=== PATIENT | female | born 1955 | race African-American/Black ===

== ENCOUNTER → 2017-04-15 | Outpatient (CLI) | payer MEDICARE, MEDICAID ==
[2016-03-01 12:02] VITALS: BP 111/74
[~2017-04-15] MED LIST: CITA40TA5 PO; CYCL10TA2 PO; DOCU100C28 PO; ESOM20CA30 PO; FLUT16SP NS; GUAI-107 PO; LORA10TA3 PO; LOSA1TAB17 PO; METF500T9 PO; NIFE30TA7 PO; ONDA4TAB7 PO; VENTOLIN HFA18 GM IH; amlodipine; citalopram; flexeril; fluticasone nasal; loratadine; losartan/hctz; metformin; nexium; proair
--- NOTE | 2017-04-15 10:52 | RAD ---
Indication left shoulder pain for 3 months. No history of injury. Internally and externally rotated views of the left shoulder were obtained. There are minimal degenerative changes at the AC joint. No acute finding is seen. Significant degenerative change at the glenohumeral joint is not seen.
== END | disposition home or self-care (01) ==
LOC: RAD 10:16
PROVIDERS: ATTEND Family Medicine
DX: M25.512 Pain in left shoulder (principal)
CPT/HCPCS: 73030

== ENCOUNTER 2017-07-18 11:41 | Emergency (ER) | payer MEDICARE, MEDICAID ==
[~2017-07-18] VITALS: Ht 165.1 cm; Wt 88.5 kg
[~2017-07-18 11:41] MED LIST changes: -GUAI-107 PO; +GUAI-108 PO
[2017-07-18 12:41] LABS: BASO # 0.1 x10^3/uL (0.0-0.2); BASO % 1 % (0-3); EOS % 5 % (0-3); HEMOGLOBIN 11.3 g/dL (12.0-15.5); LYMPH # 2.8 x10^3/uL (1.0-4.8); LYMPH % 37 % (24-48); MEAN CORPUSCULAR HEMOGLOBIN 26 pg (25-35); MEAN CORPUSCULAR HGB CONC 32 g/dL (31-37); MEAN CORPUSCULAR VOLUME 79 fL (79-100); MONO % 6 % (0-9); NEUT % 51 % (31-73); PLATELET COUNT 348 x10^3/uL (140-400); RED BLOOD COUNT 4.44 x10^6/uL (3.50-5.40); RED CELL DISTRIBUTION WIDTH 14.3 % (11.5-14.5); WHITE BLOOD COUNT 7.5 x10^3/uL (4.0-11.0)
[2017-07-18 12:46] LABS: CALCIUM 9.5 mg/dL (8.5-10.1); GFR 67.5; POTASSIUM 3.5 mmol/L (3.5-5.1)
--- NOTE | 2017-07-18 12:47 | RAD ---
EXAM: CHEST 1 VIEW History: Nontraumatic mid sternal chest pain, cough for 2 weeks COMPARISON: 03/01/2016 TECHNIQUE: Single portable radiograph of the chest FINDINGS: The cardiac silhouette is unremarkable. The lungs are clear bilaterally. The costophrenic sulci are clear and well demarcated. IMPRESSION: No radiographic evidence of an acute cardiopulmonary process.
[2017-07-18 12:52] LABS: ALBUMIN 3.9 g/dL (3.4-5.0); ALBUMIN/GLOBULIN RATIO 0.9 (1.0-1.7); TOTAL BILIRUBIN 0.3 mg/dL (0.2-1.0); TOTAL PROTEIN 8.1 g/dL (6.4-8.2)
--- NOTE | 2017-07-18 12:59 | EKG ---
[facility] [address] [place] [address] Test Date: 2017-07-18 Test Time: 11:52:02 Pat Name: YESENIA LIMA Department: Room: Gender: F Records Management Director: : 1955 Requested By: WILEY DORADO Order Number: [id number] Reading MD: Measurements Intervals Eva Rate: 90 P: 52 TX: 146 QRS: -15 QRSD: 86 T: 14 QT: 372 QTc: 459 Interpretive Statements SINUS RHYTHM LEFTWARD AXIS R-S TRANSITION ZONE IN V LEADS DISPLACED TO THE LEFT QRS(T) CONTOUR ABNORMALITY CONSIDER ANTEROSEPTAL MYOCARDIAL DAMAGE CONSISTENT WITH INFERIOR INFARCT PROBABLY OLD RI6.01 Unconfirmed report No previous ECG available for comparison
[2017-07-18 14:00] VITALS: BP 147/87
--- NOTE | 2017-07-18 14:00 | PHYS DOC ---
Past Medical History Past Medical History: Depression, Diabetes-Type II, Hypertension Past Surgical History: Hysterectomy, Other Additional Past Surgical Histo: lumpectomy left breast, right knee surgery, right thumb, BREAST REDUCTION Alcohol Use: None Drug Use: None Adult General Chief Complaint Chief Complaint: CHEST WALL PAIN HPI HPI Patient is a 62 year old AA female presents with left-sided pleuritic chest wall pain, worse with deep breathing and cough. Patient has had cough with nasal congestion rhinorrhea and nocturnal cough keep her awake. Patient was evaluated by her primary care physician 4 days ago for the same condition. Patient states her symptoms improved. Patient denies fever, chills, nausea, vomiting and sweats. Denies shortness of breath or exertional chest pain. Denies increased leg pain or swelling. No history of CAD, congestive heart failure, DVT or PE. No other acute symptoms or complaints. Patient is a nonsmoker. Review of Systems Review of Systems ROS as per HPI. Allergies Allergies Allergies Coded Allergies Type Severity Reaction Last Updated Verified verapamil Allergy Intermediate itching 10/24/14 No Physical Exam Physical Exam Constitutional: Well developed, well nourished, no acute distress, non-toxic appearance. [] HENT: Normocephalic, atraumatic, bilateral external ears normal, oropharynx moist, no oral exudates, nose normal. [] Eyes: PERRLA, EOMI, conjunctiva normal, no discharge. [] Neck: Normal range of motion, no tenderness, supple, no stridor. [] Cardiovascular:Heart rate regular rhythm, no murmur, negative Homans signs. [] Lungs & Thorax: Bilateral breath sounds clear to auscultation S had a chest wall pain, tenderness. [] Abdomen: Bowel sounds normal, soft, no tenderness, gastric pain, tenderness.[] Skin: Warm, dry, no erythema, no rash. [] Back: No tenderness, no CVA tenderness. [] Extremities: No tenderness, no cyanosis, no clubbing, ROM intact, no edema. [] Neurologic: Alert and oriented X 3, normal motor function, normal sensory function, no focal deficits noted. [] Psychologic: Affect normal, judgement normal, mood normal. [] Current Patient Data Vital Signs Vital Signs Date Time Temp Pulse Resp B/P (MAP) Pulse Ox O2 Delivery O2 Flow Rate FiO2 07/18/17 11:56 98.1 86 18 118/76 (90) 96 Room Air 98.1 Lab Values Laboratory Tests Test 07/18/17 12:25 White Blood Count 7.5 x10^3/uL (4.0-11.0) Red Blood Count 4.44 x10^6/uL (3.50-5.40) Hemoglobin 11.3 g/dL (12.0-15.5) L Hematocrit 35.0 % (36.0-47.0) L Mean Corpuscular Volume 79 fL (79-100) Mean Corpuscular Hemoglobin 26 pg (25-35) Mean Corpuscular Hemoglobin Concent 32 g/dL (31-37) Red Cell Distribution Width 14.3 % (11.5-14.5) Platelet Count 348 x10^3/uL (140-400) Neutrophils (%) (Auto) 51 % (31-73) Lymphocytes (%) (Auto) 37 % (24-48) Monocytes (%) (Auto) 6 % (0-9) Eosinophils (%) (Auto) 5 % (0-3) H Basophils (%) (Auto) 1 % (0-3) Neutrophils # (Auto) 3.8 x10^3uL (1.8-7.7) Lymphocytes # (Auto) 2.8 x10^3/uL (1.0-4.8) Monocytes # (Auto) 0.5 x10^3/uL (0.0-1.1) Eosinophils # (Auto) 0.3 x10^3/uL (0.0-0.7) Basophils # (Auto) 0.1 x10^3/uL (0.0-0.2) Sodium Level 142 mmol/L (136-145) Potassium Level 3.5 mmol/L (3.5-5.1) Chloride Level 103 mmol/L (98-107) Carbon Dioxide Level 31 mmol/L (21-32) Anion Gap 8 (6-14) Blood Urea Nitrogen 14 mg/dL (7-20) Creatinine 1.0 mg/dL (0.6-1.0) Estimated GFR (Cockcroft-Gault) 67.5 BUN/Creatinine Ratio 14 (6-20) Glucose Level 85 mg/dL (70-99) Calcium Level 9.5 mg/dL (8.5-10.1) Total Bilirubin 0.3 mg/dL (0.2-1.0) Aspartate Amino Transferase (AST) 18 U/L (15-37) Alanine Aminotransferase (ALT) 20 U/L (14-59) Alkaline Phosphatase 89 U/L (46-116) Creatine Kinase 145 U/L (26-192) Troponin I Quantitative < 0.017 ng/mL (0.000-0.055) IX-Enj-T-Type Natriuretic Peptide 12 pg/mL (0-124) Total Protein 8.1 g/dL (6.4-8.2) Albumin 3.9 g/dL (3.4-5.0) Albumin/Globulin Ratio 0.9 (1.0-1.7) L Laboratory Tests 07/18/17 12:25 Laboratory Tests 07/18/17 12:25 EKG EKG [EKG: Normal sinus rhythm, rate 90, no acute ST-T wave changes, QTC 459. EKG interpreted by this physician.] Radiology/Procedures Radiology/Procedures [Chest x-ray: No acute cardiopulmonary disease per radiology report.] Course & Med Decision Making Course & Med Decision Making Pertinent Labs and Imaging studies reviewed. (See chart for details) [Patient with persistent cough and posttussive chest wall pain and occasional emesis. Cardiac related or overlap chest pain considered but felt unlikely. EKG troponin are negative. Patient's symptoms are nonexertional. Case reviewed in detail with patient's primary care physician who requests that the patient call their office this afternoon to further coordinate outpatient care. Return precautions reviewed. Patient verbalizes understanding agreement discharge instructions prior to departure.] Dragon Disclaimer Dragon Disclaimer This electronic medical record was generated, in whole or in part, using a voice recognition dictation system. Departure Departure Impression: Primary Impression: Chest wall pain Additional Impression: Pleurisy Disposition: 01 HOME, SELF-CARE Condition: GOOD Patient Instructions: Chest Wall Pain, [id number], Pleurisy, [id number] Additional Instructions: Please contact Dr. Mckeon's office this afternoon and provide update of condition. Problem Qualifiers AVEWILEY CARBAJAL Jul 18, 2017 14:00
== END 2017-07-18 14:10 | disposition home or self-care (01) ==
LOC: ER 11:41
DX: R09.1 Pleurisy (principal); R07.89 Other chest pain; R05 Cough; R07.81 Pleurodynia; R09.81 Nasal congestion; E11.9 Type 2 diabetes mellitus without complications; I10 Essential (primary) hypertension; F32.9 Major depressive disorder, single episode, unspecified; Z90.710 Acquired absence of both cervix and uterus; Z88.8 Allergy status to other drugs, medicaments and biological substances
CPT/HCPCS: 36415; 71010; 80053; 82550; 83880; 84484; 85025; 93005; 99285-25

== ENCOUNTER 2017-08-15 16:07 | Emergency (ER) | payer MEDICARE, MEDICAID ==
[~2017-08-15] VITALS: Ht 165.1 cm; Wt 86.2 kg
[~2017-08-15 16:07] MED LIST changes: -LOSA1TAB17 PO; +LOSA1TAB22 PO
--- NOTE | 2017-08-15 16:44 | PHYS DOC ---
Past Medical History Past Medical History: Depression, Diabetes-Type II, Hypertension Past Surgical History: Hysterectomy, Other Additional Past Surgical Histo: lumpectomy left breast, right knee surgery, right thumb, BREAST REDUCTION Alcohol Use: None Drug Use: None Adult General Chief Complaint Chief Complaint: FACE PAIN HPI HPI Patient is a 62 year old female with history of diabetes type 2, hypertension, who presents with left facial swelling that she noted this morning when she woke up. Patient denies any fever. Denies any cough and congestion. She states she's had similar swelling bilaterally before and believes it went away on its own. Review of Systems Review of Systems Constitutional: Denies fever or chills [] Eyes: Denies change in visual acuity, redness, or eye pain [] HENT: Left facial swelling. Denies nasal congestion or sore throat [] Respiratory: Denies cough or shortness of breath [] Cardiovascular: No additional information not addressed in HPI [] GI: Denies abdominal pain, nausea, vomiting, bloody stools or diarrhea [] : Denies dysuria or hematuria [] Musculoskeletal: Denies back pain or joint pain [] Integument: Denies rash or skin lesions [] Neurologic: Denies headache, focal weakness or sensory changes [] Current Medications Current Medications Current Medications Medications (Trade) Dose Ordered Sig/Nevaeh Start Time Stop Time Status Last Admin Dose Admin Clindamycin Phosphate 50 ml @ 100 mls/hr Q8HRS 08/15/17 17:00 08/15/17 17:42 100 MLS/HR Info (Do NOT chart on this entry -- for MONITORING) 1 each PRN DAILY PRN 08/15/17 17:00 08/17/17 16:59 Iohexol (Omnipaque 300 Mg/ml) 75 ml 1X ONCE 08/15/17 17:00 08/15/17 17:01 DC 08/15/17 18:13 75 ML Sodium Chloride 1,000 ml @ 1,000 mls/hr 1X ONCE 08/15/17 17:00 08/15/17 17:59 DC 08/15/17 17:40 1,000 MLS/HR Allergies Allergies Allergies Coded Allergies Type Severity Reaction Last Updated Verified verapamil Allergy Intermediate itching 10/24/14 No Physical Exam Physical Exam Constitutional: Well developed, well nourished, no acute distress, non-toxic appearance. [] HENT: Normocephalic, atraumatic, bilateral external ears normal, oropharynx moist, no oral exudates, nose normal. [] Left jaw with mild swelling. No redness to the area but the area is tender. No fluctuance. Patient is missing molars, and premolars on the left upper and lower gums Eyes: PERRLA, EOMI, conjunctiva normal, no discharge. [] Neck: Normal range of motion, no tenderness, supple, no stridor. [] Cardiovascular:Heart rate regular rhythm, no murmur [] Lungs & Thorax: Bilateral breath sounds clear to auscultation [] Abdomen: Bowel sounds normal, soft, no tenderness, no masses, no pulsatile masses. [] Skin: Warm, dry, no erythema, no rash. [] Back: No tenderness, no CVA tenderness. [] Extremities: No tenderness, no cyanosis, no clubbing, ROM intact, no edema. [] Neurologic: Alert and oriented X 3, normal motor function, normal sensory function, no focal deficits noted. [] Psychologic: Affect normal, judgement normal, mood normal. [] Current Patient Data Vital Signs Vital Signs Date Time Temp Pulse Resp B/P (MAP) Pulse Ox O2 Delivery O2 Flow Rate FiO2 08/15/17 16:35 97.8 106 20 99 Room Air 97.8 Lab Values Laboratory Tests Test 08/15/17 17:30 White Blood Count 8.1 x10^3/uL (4.0-11.0) Red Blood Count 4.38 x10^6/uL (3.50-5.40) Hemoglobin 11.4 g/dL (12.0-15.5) L Hematocrit 34.6 % (36.0-47.0) L Mean Corpuscular Volume 79 fL (79-100) Mean Corpuscular Hemoglobin 26 pg (25-35) Mean Corpuscular Hemoglobin Concent 33 g/dL (31-37) Red Cell Distribution Width 14.3 % (11.5-14.5) Platelet Count 345 x10^3/uL (140-400) Neutrophils (%) (Auto) 56 % (31-73) Lymphocytes (%) (Auto) 32 % (24-48) Monocytes (%) (Auto) 7 % (0-9) Eosinophils (%) (Auto) 3 % (0-3) Basophils (%) (Auto) 1 % (0-3) Neutrophils # (Auto) 4.5 x10^3uL (1.8-7.7) Lymphocytes # (Auto) 2.6 x10^3/uL (1.0-4.8) Monocytes # (Auto) 0.6 x10^3/uL (0.0-1.1) Eosinophils # (Auto) 0.3 x10^3/uL (0.0-0.7) Basophils # (Auto) 0.1 x10^3/uL (0.0-0.2) Erythrocyte Sedimentation Rate 18 (0-25) Sodium Level 142 mmol/L (136-145) Potassium Level 3.4 mmol/L (3.5-5.1) L Chloride Level 103 mmol/L (98-107) Carbon Dioxide Level 30 mmol/L (21-32) Anion Gap 9 (6-14) Blood Urea Nitrogen 11 mg/dL (7-20) Creatinine 1.0 mg/dL (0.6-1.0) Estimated GFR (Cockcroft-Gault) 67.5 Glucose Level 97 mg/dL (70-99) Lactic Acid Level 1.4 mmol/L (0.4-2.0) Calcium Level 9.2 mg/dL (8.5-10.1) C-Reactive Protein, Quantitative 1.8 mg/L (0-3.3) Procalcitonin < 0.10 ng/mL (0.00-0.10) Laboratory Tests 08/15/17 17:30 Laboratory Tests 08/15/17 17:30 EKG EKG [] Radiology/Procedures Radiology/Procedures []PROCEDURE: CT MAXILLOFACIAL W/CONTRAST CT scan of the face with contrast 08/15/2017 CLINICAL HISTORY: Left facial swelling. TECHNIQUE: After the intravenous administration of 70 cc of Omnipaque 300, contiguous, 0.625 mm axial sections were obtained through the face and orbits. 3 mm reconstructed sagittal, axial and coronal images were obtained. One or more of the following individualized dose reduction techniques were utilized for this study: 1. Automated exposure control. 2. Adjustment of the mA and/or kV according to patient size. 3. Use of iterative reconstruction technique. FINDINGS: The left parotid gland is enlarged. It is slightly heterogeneous. Increased density is seen within the fat surrounding the left parotid gland. These findings are consistent with an inflammatory/infectious process. No abnormal fluid collection is seen to suggest evidence of an abscess. No calculus is seen. The submandibular glands are within normal limits. The mucosal structures of the nasopharynx, oropharynx and hypopharynx are within normal limits. No cervical lymphadenopathy is seen. The paranasal sinuses are essentially clear. The mastoid air cells and middle ear cavities are well aerated and are clear. The orbits are within normal limits. IMPRESSION: The left parotid gland is enlarged. Increased density is seen within the fat surrounding the left parotid gland. These findings are consistent with an inflammatory/infectious process. No abnormal fluid collection is seen to suggest evidence of an abscess. Electronically signed by: Adam Kimble MD (08/15/2017 6:47 PM) [facility] DICTATED and SIGNED BY: ADAM KIMBLE MD DATE: 08/15/17 1843 CC: DIONNE LARSEN MD; SHARON PEACOCK APRN ~ Course & Med Decision Making Course & Med Decision Making Pertinent Labs and Imaging studies reviewed. (See chart for details) Patient has left facial swelling that began this morning. She has facial swelling suspicious of mastoiditis infection. CBC BMP C-reactive with no acute findings. CT of the faciomaxillary is noted for mastoiditis on the left parotid. Patient was discharged on clindamycin. First dose was given in the ED. Instructed to follow-up with her own doctor in the next 7 days. Instructed to return to the ED if symptoms worsen. Dragon Disclaimer Dragon Disclaimer This electronic medical record was generated, in whole or in part, using a voice recognition dictation system. Departure Departure Impression: Primary Impression: Mastoiditis of left side Disposition: 01 HOME, SELF-CARE Condition: STABLE Referrals: DIONNE LARSEN MD (PCP) follow up in seven days Patient Instructions: Mastoiditis Additional Instructions: You have mastoiditis infection in the left parotid gland. You must complete your antibiotics. Take ibuprofen or Tylenol for pain or fever. Kindly follow-up with your own doctor in the next 1-7 days. Please return to the emergency room if symptoms worsen. Scripts Clindamycin Hcl (CLINDAMYCIN HCL) 150 Mg Capsule 3 CAP PO TID, #90 CAP Prov: SHARON PEACOCK APRN 08/15/17 SHARON PEACOCK [employer] Aug 15, 2017 16:44
[2017-08-15] MEDS ORDERED: CLINDAMYCIN 900MG PREMIX 50 ML IV SCH (17:00)
[2017-08-15] MEDS ORDERED: IOHEXOL 300 MG/ML 75 ML VIAL IV ONE (17:00)
[2017-08-15] MEDS ORDERED: IV NORMAL SALINE 1000ML BAG 1,000 ML IV ONE (17:00)
[2017-08-15] MEDS ORDERED: CONTRAST GIVEN MC PRN (17:00)
[2017-08-15 17:42] LABS: BASO # 0.1 x10^3/uL (0.0-0.2); BASO % 1 % (0-3); EOS % 3 % (0-3); HEMATOCRIT 34.6 % (36.0-47.0); HEMOGLOBIN 11.4 g/dL (12.0-15.5); LYMPH # 2.6 x10^3/uL (1.0-4.8); LYMPH % 32 % (24-48); MEAN CORPUSCULAR HEMOGLOBIN 26 pg (25-35); MEAN CORPUSCULAR HGB CONC 33 g/dL (31-37); MEAN CORPUSCULAR VOLUME 79 fL (79-100); MONO % 7 % (0-9); NEUT % 56 % (31-73); PLATELET COUNT 345 x10^3/uL (140-400); RED BLOOD COUNT 4.38 x10^6/uL (3.50-5.40); RED CELL DISTRIBUTION WIDTH 14.3 % (11.5-14.5); WHITE BLOOD COUNT 8.1 x10^3/uL (4.0-11.0)
[2017-08-15 18:02] LABS: CALCIUM 9.2 mg/dL (8.5-10.1); GFR 67.5; POTASSIUM 3.4 mmol/L (3.5-5.1)
[2017-08-15 18:04] LABS: C-REACTIVE PROTEIN 1.8 mg/L (0-3.3)
--- NOTE | 2017-08-15 18:51 | RAD ---
CT scan of the face with contrast 08/15/2017 CLINICAL HISTORY: Left facial swelling. TECHNIQUE: After the intravenous administration of 70 cc of Omnipaque 300, contiguous, 0.625 mm axial sections were obtained through the face and orbits. 3 mm reconstructed sagittal, axial and coronal images were obtained. One or more of the following individualized dose reduction techniques were utilized for this study: 1. Automated exposure control. 2. Adjustment of the mA and/or kV according to patient size. 3. Use of iterative reconstruction technique. FINDINGS: The left parotid gland is enlarged. It is slightly heterogeneous. Increased density is seen within the fat surrounding the left parotid gland. These findings are consistent with an inflammatory/infectious process. No abnormal fluid collection is seen to suggest evidence of an abscess. No calculus is seen. The submandibular glands are within normal limits. The mucosal structures of the nasopharynx, oropharynx and hypopharynx are within normal limits. No cervical lymphadenopathy is seen. The paranasal sinuses are essentially clear. The mastoid air cells and middle ear cavities are well aerated and are clear. The orbits are within normal limits. IMPRESSION: The left parotid gland is enlarged. Increased density is seen within the fat surrounding the left parotid gland. These findings are consistent with an inflammatory/infectious process. No abnormal fluid collection is seen to suggest evidence of an abscess. Electronically signed by: Adam Pagan MD (08/15/2017 6:47 PM) [facility]
[2017-08-15] MEDS ORDERED: CLIN150C14 PO (19:08)
[2017-08-15 19:41] VITALS: BP 143/81
== END 2017-08-15 19:38 | disposition home or self-care (01) ==
LOC: ER 16:07
DX: H70.92 Unspecified mastoiditis, left ear (principal); E11.9 Type 2 diabetes mellitus without complications; I10 Essential (primary) hypertension; Z88.8 Allergy status to other drugs, medicaments and biological substances
CPT/HCPCS: 36415; 70487; 80048; 83605; 84145; 85025; 85651; 86140; 87040; 96365; 99285; J3490; J7030; Q9967

== ENCOUNTER → 2018-01-25 | Outpatient (CLI) | payer MEDICARE, MEDICAID ==
[2018-01-25] MEDS: REGADENOSON 0.4 MG/5 ML DISP.SYRIN. IV (11:39)
== END | disposition home or self-care (01) ==
LOC: NM 09:11
DX: I36.1 Nonrheumatic tricuspid (valve) insufficiency (principal); I51.7 Cardiomegaly; E11.9 Type 2 diabetes mellitus without complications; I10 Essential (primary) hypertension
CPT/HCPCS: 78452; 93017; 93306; 96374; 96375; 96376; A9500; J2785

== ENCOUNTER → 2018-02-01 | Outpatient (CLI) | payer MEDICARE, MEDICAID | END | disposition home or self-care (01) | LOC: MAMMO 08:01 | DX: Z12.31 Encounter for screening mammogram for malignant neoplasm of breast (principal) | CPT/HCPCS: 77063; 77067 ==

== ENCOUNTER 2018-03-13 17:16 | Emergency (ER) | payer MEDICARE, MEDICAID | END 2018-03-13 18:23 | disposition home or self-care (01) | LOC: ER 17:16 | DX: G89.29 Other chronic pain (principal); R68.84 Jaw pain (principal); F32.9 Major depressive disorder, single episode, unspecified; E11.9 Type 2 diabetes mellitus without complications; I10 Essential (primary) hypertension; Z88.8 Allergy status to other drugs, medicaments and biological substances; Z90.710 Acquired absence of both cervix and uterus | CPT/HCPCS: 99281 ==

== ENCOUNTER → 2018-07-21 | Outpatient (CLI) | payer MEDICARE, MEDICAID ==
[2018-05-03 11:00] VITALS: BP 115/70
[~2018-07-21] MED LIST changes: +ASPI-612 PO; +CLIN150C14 PO; +METF100010 PO; +RANI150T2 PO; +VALS1TAB18 PO
--- NOTE | 2018-07-21 17:07 | RAD ---
MR of the right shoulder Indication: Right shoulder pain for 6 months. Technique: Standard multiplanar sequences are obtained. Findings: Artifact: No significant image degradation. Acromioclavicular joint: Degenerative, with moderate undersurface osteophytes and mass effect. Rotator cuff: * Supraspinatus-infraspinatus tendon: Small full-thickness tear of the far anterior supraspinatus footprint, less than 1 cm. No significant retraction. Diffuse tendinosis with thickening and hyperintense signal, particularly along the undersurface. * Subscapularis tendon: Tendinosis * Muscle bulk: Within normal limits * Subacromial subdeltoid bursa: Small effusion. Fluid: No significant glenohumeral effusion. Glenohumeral cartilage: No acute defect or advanced DJD. Labrum: No evidence of labral detachment. Biceps tendon: Intact Bones: No lesion or acute fracture. Soft tissue: No acute findings. Impression: 1. Small subcentimeter full-thickness rotator cuff tear of anterior supraspinatus tendon. Generalized tendinosis. 2. Acromioclavicular joint osteophytes with mass effect. Electronically signed by: Santo Granger MD (07/21/2018 5:04 PM) [facility]
== END | disposition home or self-care (01) ==
LOC: MRI 13:09
PROVIDERS: ATTEND Family Medicine
DX: M75.101 Unspecified rotator cuff tear or rupture of right shoulder, not specified as traumatic (principal); M75.91 Shoulder lesion, unspecified, right shoulder; M25.711 Osteophyte, right shoulder; M25.411 Effusion, right shoulder; I10 Essential (primary) hypertension; E11.9 Type 2 diabetes mellitus without complications; K21.9 Gastro-esophageal reflux disease without esophagitis; E87.6 Hypokalemia; Z79.899 Other long term (current) drug therapy; Z90.710 Acquired absence of both cervix and uterus; Z88.8 Allergy status to other drugs, medicaments and biological substances; Z82.49 Family history of ischemic heart disease and other diseases of the circulatory system; Z82.3 Family history of stroke; Z83.3 Family history of diabetes mellitus
CPT/HCPCS: 73221

== ENCOUNTER 2018-10-14 12:52 | Emergency (ER) | payer MEDICARE, MEDICAID ==
[~2018-10-14] VITALS: Ht 165.1 cm; Wt 86.2 kg
[2018-10-14 15:20] VITALS: BP 123/83
[2018-10-14] MEDS ORDERED: MELO7.5T5 PO (15:51)
--- NOTE | 2018-10-14 15:52 | PHYS DOC ---
Past Medical History Past Medical History: Depression, Diabetes-Type II, Hypertension, IBS Past Surgical History: Hysterectomy, Other Additional Past Surgical Histo: lumpectomy left breast, right knee surgery, right thumb, BREAST REDUCTION Alcohol Use: None Drug Use: None Adult General Chief Complaint Chief Complaint: KNEE INJURY HPI HPI Patient is a 63 year old female who presents with bilateral knee pain. The patient states that she has been to her primary care physician. She was just have x-rays done of her knees but has not received a phone call yet. She is presenting to the emergency department because her pain is worsened. She has not started any medications. Her primary care provider did tell her that she suspected arthritis. The patient denies any injury to her knees recently. Review of Systems Review of Systems Constitutional: Denies fever or chills [] Respiratory: Denies cough or shortness of breath [] Cardiovascular: No additional information not addressed in HPI [] GI: Denies abdominal pain, nausea, vomiting, bloody stools or diarrhea [] : Denies dysuria or hematuria [] Musculoskeletal: See history of present illness Integument: Denies rash or skin lesions [] Neurologic: Denies headache, focal weakness or sensory changes [] Endocrine: Denies polyuria or polydipsia [] All other systems were reviewed and found to be within normal limits, except as documented in this note. Allergies Allergies Allergies Coded Allergies Type Severity Reaction Last Updated Verified verapamil Allergy Intermediate itching 10/24/14 No Physical Exam Physical Exam Constitutional: Well developed, well nourished, no acute distress, non-toxic appearance. [] Cardiovascular:Heart rate regular rhythm, no murmur [] Lungs & Thorax: Bilateral breath sounds clear to auscultation [] Abdomen: Bowel sounds normal, soft, no tenderness, no masses, no pulsatile masses. [] Skin: Warm, dry, no erythema, no rash. [] Back: No tenderness, no CVA tenderness. [] Extremities: tenderness to bilateral knees with no gross deformity noted, no cyanosis, no clubbing, ROM intact, no edema. [] Neurologic: Alert and oriented X 3, normal motor function, normal sensory function, no focal deficits noted. [] Psychologic: Affect normal, judgement normal, mood normal. [] Current Patient Data Vital Signs Vital Signs Date Time Temp Pulse Resp B/P (MAP) Pulse Ox O2 Delivery O2 Flow Rate FiO2 12/22/18 15:20 97.9 86 18 123/83 (96) 99 Room Air 97.9 EKG EKG [] Radiology/Procedures Radiology/Procedures [] PATIENT: YESENIA LIMA ACCOUNT: [id number] : 1955 LOCATION: ER AGE: 63 SEX: F EXAM STATUS: REG ER ORD. PHYSICIAN: LIAT HERNANDEZ APRN REASON: pain x 1 week PROCEDURE: KNEE BILAT 3V EXAM: 3 views both knees DATE: 10/14/2018 3:13 PM INDICATION: PAIN X 1 WEEK COMPARISON: 09/22/2017 FINDINGS: Right knee: Small medial compartment osteophytes are seen. No right knee joint effusion. No evidence of acute fracture or dislocation. Patellar enthesopathy Left knee: No evidence of acute fracture or dislocation. Joint spaces are preserved without significant degenerative/proliferative change. Small left knee joint effusion. Patellar enthesopathy. IMPRESSION: Small left knee joint effusion without evidence of acute fracture or dislocation. No evidence of right knee fracture. Patellar enthesopathy bilaterally. Electronically signed by: Jaciel Buck MD (10/14/2018 4:03 PM) [facility] DICTATED and SIGNED BY: JACEIL BUCK MD DATE: 10/14/181601 Course & Med Decision Making Course & Med Decision Making Pertinent Labs and Imaging studies reviewed. (See chart for details) [] Dragon Disclaimer Dragon Disclaimer This electronic medical record was generated, in whole or in part, using a voice recognition dictation system. Departure Departure Impression: Primary Impression: Arthritis of both knees Disposition: 01 HOME, SELF-CARE Condition: STABLE Referrals: DIONNE LARSEN MD (PCP) Patient Instructions: Arthritis, Nonspecific Additional Instructions: Take the medication as directed. Keep your follow-up appointment with your primary care provider. If worsening return to the emergency department. Scripts Meloxicam (MOBIC) 7.5 Mg Tablet 1 TAB PO DAILY for arthritis, #30 TAB 1 Refill Prov: LIAT HERNANDEZ APRN 10/14/18 LIAT HERNANDEZ APRN Oct 14, 2018 15:52
--- NOTE | 2018-10-14 16:07 | RAD ---
EXAM: 3 views both knees DATE: 10/14/2018 3:13 PM INDICATION: PAIN X 1 WEEK COMPARISON: 09/22/2017 FINDINGS: Right knee: Small medial compartment osteophytes are seen. No right knee joint effusion. No evidence of acute fracture or dislocation. Patellar enthesopathy Left knee: No evidence of acute fracture or dislocation. Joint spaces are preserved without significant degenerative/proliferative change. Small left knee joint effusion. Patellar enthesopathy. IMPRESSION: Small left knee joint effusion without evidence of acute fracture or dislocation. No evidence of right knee fracture. Patellar enthesopathy bilaterally. Electronically signed by: Jaciel Norwood MD (10/14/2018 4:03 PM) [facility]
== END 2018-10-14 15:57 | disposition home or self-care (01) ==
LOC: ER 12:52
DX: M17.0 Bilateral primary osteoarthritis of knee (principal); I10 Essential (primary) hypertension; E11.9 Type 2 diabetes mellitus without complications; K58.9 Irritable bowel syndrome, unspecified; Z90.710 Acquired absence of both cervix and uterus; Z88.8 Allergy status to other drugs, medicaments and biological substances
CPT/HCPCS: 73562; 99283

== ENCOUNTER → 2019-03-26 | Outpatient (CLI) | payer MEDICARE, MEDICAID ==
[~2019-03-26] MED LIST changes: +MELO7.5T5 PO
--- NOTE | 2019-03-27 08:46 | RAD ---
DATE: 03/27/2019. EXAM: Bilateral 3-D digital screening mammography with CAD. HISTORY: Routine mammographic screening. COMPARISON: 02/01/2018. This study was interpreted with the benefit of Computerized Aided Detection (CAD). FINDINGS: Breast Density: FATTY The breast parenchyma is primarily fatty replaced. Breast parenchyma level density A.. There is a new small nodule superolaterally on the right. See annotations. There is no suspicious finding on the left. BI-RADS CATEGORY: 0 INCOMPLETE: NEEDS ADDITIONAL IMAGING EVALUATION AND/OR PRIOR MAMMOGRAMS FOR COMPARISON.. RECOMMENDED FOLLOW-UP: ADD ADDITIONAL IMAGING. 1. Spot compression of a new small nodule superolaterally on the right. Sonography if necessary. PQRS compliance statement: Patient information was entered into a reminder system with a target due date (now) for the next mammogram. Mammography is a sensitive method for finding small breast cancers, but it does not detect them all and is not a substitute for careful clinical examination. A negative mammogram does not negate a clinically suspicious finding and should not result in delay in biopsying a clinically suspicious abnormality. "Our facility is accredited by the [employer] Mammography Program."
== END | disposition home or self-care (01) ==
LOC: MAMMO 12:27
PROVIDERS: ATTEND Family Medicine
DX: Z12.31 Encounter for screening mammogram for malignant neoplasm of breast (principal)
CPT/HCPCS: 77067

== ENCOUNTER → 2019-04-09 | Outpatient (CLI) | payer MEDICARE, MEDICAID ==
--- NOTE | 2019-04-09 14:03 | RAD ---
DATE: 04/09/2019 EXAM: DIGITAL DIAGNOSTIC RT, BREAST RIGHT HISTORY: Suspicious screening study COMPARISON: 03/26/2019, 02/01/2018 This study was interpreted with the benefit of Computerized Aided Detection (CAD). Breast Density: FATTY The breast parenchyma is primarily fatty replaced. Breast parenchyma level density A. FINDINGS: Additional views of the right breast confirm the presence of a tiny 3 mm nodule in the posterolateral aspect of the right breast at approximately the 9:00 location. There is a suggestion of a hilar lucency compatible with an intramammary lymph node. This nodule was not visible on older studies. Right breast ultrasound, 04/09/2019: A targeted ultrasound exam of the right breast was performed posterolaterally. Heterogeneous fibroglandular shadows are evident. No solid mass or unusual fluid collection is seen. IMPRESSION: 1. Small right breast nodule with mammographic characteristics suggesting an intramammary lymph node. 2. No sonographic correlate could be identified. 3. Follow-up right mammography in 4-6 months is suggested. BI-RADS CATEGORY: 3 PROBABLY BENIGN FINDING(S)-SHORT INTERVAL FOLLOW-UP SUGGESTED RECOMMENDED FOLLOW-UP: 6M 6 MONTH FOLLOW-UP PQRS compliance statement: Patient information was entered into a reminder system with a target due date for the next mammogram. Mammography is a sensitive method for finding small breast cancers, but it does not detect them all and is not a substitute for careful clinical examination. A negative mammogram does not negate a clinically suspicious finding and should not result in delay in biopsying a clinically suspicious abnormality. "Our facility is accredited by the [employer] Mammography Program."
== END | disposition home or self-care (01) ==
LOC: MAMMO 13:13
PROVIDERS: ATTEND Family Medicine
DX: N63.11 Unspecified lump in the right breast, upper outer quadrant (principal)
CPT/HCPCS: 76641; 77065

== ENCOUNTER 2019-11-14 05:48 | Day surgery (SDC) | payer MEDICARE, MEDICAID ==
[~2019-11-14] VITALS: Ht 165.1 cm; Wt 85.0 kg
[~2019-11-14 05:48] MED LIST changes: +ATOR10TA60 PO; +METF500T11 PO; -METF500T9 PO
[2019-11-14] MEDS ORDERED: INSULIN LISPRO 100 UNIT/ML 3ML VIAL for OP,RR ONLY. SQ PRN (06:30)
[2019-11-14] MEDS ORDERED: ROPIVacaine 0.5% PF 20 ML VIAL. ONE (06:37)
[2019-11-14] MEDS ORDERED: ONDANSETRON PF 4 MG/2 ML VIAL. IV PRN (07:00)
[2019-11-14] MEDS ORDERED: PROCHLORPERAZINE 10 MG/2 ML VIAL. IV PRN (07:00)
[2019-11-14] MEDS ORDERED: fentaNYL PF VIAL 100 MCG/2 ML VIAL IV PRN (07:00)
[2019-11-14] MEDS ORDERED: LIDOCAINE 1% PF 2 ML VIAL. ID PRN (07:00)
[2019-11-14] MEDS ORDERED: IV RINGERS,LACTATED 1000ML 1,000 ML IV SCH (07:00)
[2019-11-14] MEDS ORDERED: fentaNYL PF VIAL 100 MCG/2 ML VIAL ONE (07:01)
[2019-11-14] MEDS ORDERED: ONDANSETRON PF 4 MG/2 ML VIAL. ONE (07:01)
[2019-11-14] MEDS ORDERED: LIDOCAINE 2% PF 5 ML VIAL. ONE (07:01)
[2019-11-14] MEDS ORDERED: PROPOFOL 20 ML IV ONE (07:01)
[2019-11-14] MEDS ORDERED: DEXAMETHASONE SOD PHOS 4 MG/ML VIAL ONE (07:01)
[2019-11-14] MEDS ORDERED: BUPIVACAINE MPF 0.5% 30 ML VIAL. ONE (07:02)
[2019-11-14] MEDS ORDERED: EPINEPHrine VIAL 30 MG/30 ML VIAL ONE (07:02)
[2019-11-14] MEDS ORDERED: LIDOCAINE 1% 20 ML VIAL. ONE (07:02)
[2019-11-14] MEDS ORDERED: ROCURONIUM 50 MG/5 ML VIAL. ONE (07:09)
--- NOTE | 2019-11-14 07:28 | DISCH ---
DISCHARGE INSTRUCTIONS Condition on Discharge Condition on Discharge: Stable Activity After Discharge Activity Instructions for Disc: Activity as tolerated, Other ROM activity, Other, see below Other activity instructions: arm to remain in sling; NWB Bathing Instructions: Shower-keep dressing dry Driving Instructions after Dis: Do not drive today Weight Bearing Status after Di: No restrictions, Non weight bearing Diet after Discharge Diet after Discharge: Diabetic No Calorie Level Diet Texture: Regular Liquid Texture: Thin Liquid Swallowing Supervision: None needed Wound Incision Care Wound/Incision Care: Ice to area for comfort, Keep wound/cast CDI, Change dressing Checks after Discharge Checks after discharge: Check blood press - daily, Check blood sugar, ac/hs, Check your Temp as needed Contacting the DR. after DC Call your doctor for: Concerns you may have Follow-Up Follow up with: Batsheva in 2 wks Treatment/Equipment after DC Adaptive Equipment Issued: None LEANN FOOTE II, MD Nov 14, 2019 07:28
[2019-11-14] MEDS ORDERED: PHENYLEPHRINE in 0.9% NACL PF 1 MG/10 ML SYRINGE. IV ONE ×2 (07:46→08:30)
[2019-11-14] MEDS ORDERED: SEVOFLURANE > 120 MINUTES. IH ONE (07:50)
[2019-11-14] MEDS ORDERED: GLYCOPYRROLATE 1 MG/5 ML VIAL. ONE (08:11)
[2019-11-14] MEDS ORDERED: NEOSTIGMINE METHYLSULFATE 5 MG/5 ML SYRINGE. ONE (08:12)
[2019-11-14] MEDS ORDERED: ESMOLOL 100 MG/10 ML VIAL. IVP ONE (08:22)
[2019-11-14] MEDS: fentaNYL PF VIAL 100 MCG/2 ML VIAL IV PRN ×2 (09:14→09:24)
[2019-11-14] MEDS ORDERED: DOCU-109 PO (09:18)
[2019-11-14] MEDS ORDERED: OXYC-325 PO (09:19)
[2019-11-14] MEDS ORDERED: ONDA8TAB9 SL (09:20)
[2019-11-14] MEDS ORDERED: oxyCODONE/APAP 5/325 1 TAB TABLET PO ONE (09:30)
[2019-11-14] MEDS: MORPHINE SULFATE 2 MG/ML VIAL. IV PRN ×2 (09:36→09:42)
--- NOTE | 2019-11-14 09:40 | PDOC4 ---
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 plus regional nerve block Findings: #1 glenohumeral cartilage was unremarkable #2 small amount of fraying at the labrum, labrum intact circumferentially #3 intra-articular portion of visualized rotator cuff unremarkable #4 no loose bodies #5 biceps tendon without obvious pathology #6 2 cm partial-thickness bursal sided rotator cuff tear. Blood loss: 10mL Components inserted: [employer]ph[employer]altura Helacoil anchor x 2 Reason for procedure: Patient is a very pleasant woman who has had worsening right shoulder pain. Clinical and radiographic examination, including MRI were consistent with the preoperative diagnosis. She had tried physical therapy, anti-inflammatories, and an injection and these did not give her good relief. Due to her symptoms and dysfunction, we had a discussion of the risks, benefits, alternatives the above surgery and he wished to proceed. Description of procedure: Patient was greeted in the preoperative holding area where the correct extremity was verified and marked. They were taken to the preoperative holding area where the anesthesiology team placed a regional nerve block. The patient was then taken back to the operative suite and antibiotics were started as they were brought back. Once in the operative room, the patient was transferred gently supine to the operating room table after successful induction of a general anesthetic. After this, she was sat up in a beachchair position maintaining her C-spine in neutral position, large pad under his legs, she was secured to the bed. We then prepped and draped her right upper extremity and shoulder girdle in our usual sterile fashion, we conducted our standard preoperative timeout. I palpated and marked surface anatomy for my planned portal sites. I then used a spinal needle to localize a posterior superior portal and incised skin in accordance with this. After this, I introduced the blunt arthroscopic trocar into the glenohumeral joint followed by the camera. I used a spinal needle to localize an anterosuperior portal and incised skin in accordance with this. I then introduced my arthroscopic probe and conducted my diagnostic arthroscopy with the above-noted findings. After this, I repositioned the camera into the subacromial space and performed a bursectomy with combination of shaver and electrocautery device, making sure I could visualize the distal clavicle as well. I then identified the rotator cuff tear and I debrided the pathologic tendon and prepared my footprint. I then placed my helacoil anchors and shuttled limbs through in a simple configuration. I tied these down with arthroscopic knot-tying techniques. The tear was stable to probing and to gentle rotation of the arm. After this, I introduced my arthroscopic bur through my anterosuperior portal and took down a small spur at the acromion as well as 3 mm of bone at the distal clavicle, I felt I had good visualization and inspected closely to make sure I didnt leave a rim of bone anywhere. I then removed all loose bony debris and the excess arthroscopic fluid. I took my final pictures prior to this. After this, all the excess fluid and instrumentation was removed. The portals were closed with simple interrupted 3-0 nylon. Sterile dressing was applied followed by an abduction pillow sling. Patient tolerated surgery well. No complications. At the conclusion, she was laid supine and transferred gently supine to the recovery room cart and taken to the PACU in a stable and extubated condition. Postoperative plan is discharge her home, nonweightbearing for 6 weeks. Well get her started on physical therapy. She will follow up with me in 2 weeks, sooner should a problem arise. CHARLY FOOTE II, MD Nov 14, 2019 09:40
[2019-11-14] MEDS: HYDROmorphone 2 MG/ML VIAL IV PRN ×4 (09:48→10:05)
[2019-11-14 10:10] VITALS: BP 131/78
[2019-11-14] MEDS ORDERED: diphenhydrAMINE 50 MG/ML VIAL ONE (10:27)
[2019-11-14] MEDS ORDERED: diphenhydrAMINE 50 MG/ML VIAL IVP ONE (10:30)
== END 2019-11-14 11:05 | disposition home or self-care (01) ==
LOC: SURG 05:48
PROVIDERS: ATTEND Orthopaedic Surgery Sports Medicine
DX: M75.111 Incomplete rotator cuff tear or rupture of right shoulder, not specified as traumatic (principal); M19.011 Primary osteoarthritis, right shoulder; I10 Essential (primary) hypertension; E78.00 Pure hypercholesterolemia, unspecified; K21.9 Gastro-esophageal reflux disease without esophagitis; F32.9 Major depressive disorder, single episode, unspecified; Z79.899 Other long term (current) drug therapy; Z98.890 Other specified postprocedural states; Z98.42 Cataract extraction status, left eye; Z98.41 Cataract extraction status, right eye; Z90.710 Acquired absence of both cervix and uterus; Z96.1 Presence of intraocular lens
CPT/HCPCS: 29824; 29827; 36415; 64415; 82306; 82962; A7015; C1713; C1782; J0171; J0696; J1100; J1170; J1200; J2001; J2270; J2370; J2405; J2704; J2710; J2795; J3010; J3490

== ENCOUNTER → 2020-07-17 | Outpatient (CLI) | payer MEDICARE, MEDICAID ==
[~2020-07-17] MED LIST changes: -ASPI-612 PO; +ASPI-886 PO; +DOCU-109 PO; +METF-658 PO; -METF500T11 PO; +ONDA8TAB9 SL; +OXYC-325 PO
--- NOTE | 2020-07-17 10:39 | RAD ---
BILATERAL SCREENING MAMMOGRAM, 3-D History: Routine screening. Comparison: 07/01/2016, 10/19/2016, 02/01/2018, 03/26/2019. Technique: MLO and CC digital tomosynthesis (3D) images obtained. Radiologist reviewed these images on dedicated workstation. Findings: Breast Tissue Density B : There are scattered areas of fibroglandular density. There are no dominant masses, suspicious microcalcifications, or architectural distortion. IMPRESSION: No mammographic evidence of malignancy. Recommend routine screening. BI-RADS category 1: Negative. The images were reviewed with computer-aided detection. Patient information is entered into reminder system with a target due date for the next screening mammogram. Mammography is the most sensitive method for finding small breast cancers, but it does not detect them all and is not a substitute for careful clinical examination. A negative mammogram does not negate a clinically suspicious finding and should not result in delay in biopsying a clinically suspicious abnormality. "Our facility is accredited by the [employer] Mammography Program." Electronically signed by: Olman Elias MD (07/17/2020 10:36 AM) [id number]
== END | disposition home or self-care (01) ==
LOC: MAMMO 09:10
PROVIDERS: ATTEND Family Medicine
DX: Z12.31 Encounter for screening mammogram for malignant neoplasm of breast (principal)
CPT/HCPCS: 77063; 77067

== ENCOUNTER 2020-12-21 06:59 | Emergency (ER) | payer MEDICARE, MEDICAID ==
[~2020-12-21] VITALS: Ht 165.1 cm; Wt 81.8 kg
[~2020-12-21 06:59] MED LIST changes: -CLIN150C14 PO; +CLIN150C15 PO
--- NOTE | 2020-12-21 07:58 | PHYS DOC ---
Past Medical History Past Medical History: Depression, Diabetes-Type II, Hypertension, IBS Past Surgical History: Hysterectomy, Other Additional Past Surgical Histo: lumpectomy left breast, right knee surgery, right thumb, BREAST REDUCTION Smoking Status: Never Smoker Alcohol Use: None Drug Use: None General Adult EDM: Chief Complaint: NECK PAIN HPI: HPI: 65-year-old female past medical history significant for [id number] diabetes, hypertension, hyperlipidemia and depression, presents the ED with complaints of "my throat is sore," states her neck hurts in the middle all the way down to her sternum, persistent for 1.5 wks with associated left ear fullness and hoarse voice. Moving head to each side makes the anterior neck pain worse. Denies her throat hurting when she eats or swallows. No known h/o covid. Last dental procedure was 2 years ago. Has not had her thyroid checked. Denies any associated fever, chills, nausea, vomiting, myalgias, speech changes, drooling, difficulty breathing, rash or neck swelling. D/w rn - pt told her Review of Systems: Review of Systems: Constitutional: Denies fever or chills. [] Eyes: Denies change in visual acuity. [] HENT: Denies nasal congestion or sore throat. [] Respiratory: Denies cough or shortness of breath. [] Cardiovascular: Denies chest pain or edema. [] GI: Denies abdominal pain, nausea, vomiting, bloody stools or diarrhea. [] : Denies dysuria. [] Musculoskeletal: Denies back pain or joint pain. [] Integument: Denies rash. [] Neurologic: Denies headache, neck sitffness, focal weakness or sensory changes. [] Endocrine: Denies polyuria or polydipsia. [] Lymphatic: Denies swollen glands. [] Psychiatric: Denies depression or anxiety. [] Heart Score: Risk Factors: Risk Factors: DM, Current or recent (<one month) smoker, HTN, HLP, family history of CAD, obesity. Risk Scores: Score 0 - 3: 2.5% MACE over next 6 weeks - Discharge Home Score 4 - 6: 20.3% MACE over next 6 weeks - Admit for Clinical Observation Score 7 - 10: 72.7% MACE over next 6 weeks - Early Invasive Strategies Allergies: Allergies: Allergies Coded Allergies Type Severity Reaction Last Updated Verified verapamil Allergy Intermediate itching 11/14/19 No Physical Exam: PE: Constitutional: Well developed, well nourished, no acute distress, non-toxic appearance, appears tired HENT: Normocephalic, atraumatic, normal TMs bilaterally, mild lateral tonsillar erythema but no exudates or palatal petechiae, Mallampati 4, using tongue depressor - no oropharyngeal swelling/edema or cobblestoning, no visible goiter Eyes: PERRLA, EOMI, conjunctiva normal, no discharge. Neck: Normal range of motion, supple, Cardiovascular: S1/2 present, regular rhythm Lungs & Thorax: Speaking in full sentences, bilateral equal chest rise, no tachypnea or increased work of breathing, easily protecting airway Abdomen: soft, no tenderness, Skin: Warm, dry, no erythema, no rash. [] Back: No tenderness, no CVA tenderness. [] Extremities: No tenderness, no cyanosis, no lower extremity edema Neurologic: Alert and oriented X 3, normal motor function, normal sensory function, no focal deficits noted. [] Psychologic: Affect normal, judgement normal, mood normal. [] Current Patient Data: Vital Signs: Vital Signs Date Time Temp Pulse Resp B/P (MAP) Pulse Ox O2 Delivery O2 Flow Rate FiO2 12/21/20 07:11 98.7 85 18 137/67 (90) 96 Room Air 98.7 EKG: EKG: [] Radiology/Procedures: Radiology/Procedures: IMAGING REPORT Signed PATIENT: YESENIA LIMA ACCOUNT: [id number] : 1955 LOCATION: ER AGE: 65 SEX: F EXAM STATUS: REG ER ORD. PHYSICIAN: DAMIAN BERRIOS DO REASON: anterior midline neck pain PROCEDURE: CT SOFT TISSUE NECK W/CONTRAST CT NECK SOFT TISSUE WITH IV CONTRAST DATE: 12/21/2020 9:18 AM INDICATION: anterior midline neck pain TECHNIQUE: Axial computed tomography of the neck with intravenous contrast according to the standard neck protocol. 70 cc of Omnipaque 300 was administered intravenously. One or more of the following dose reduction techniques were utilized: Automated exposure control (AEC), Adjustment of mA and/or kV according to patient size, Use of iterative reconstruction technique such as ASiR, CT scan done according to ALARA and image gently/image wisely COMPARISON: None. FINDINGS: Scattered subcentimeter lymph nodes are seen in the neck. None are pathologically enlarged or abnormally enhancing. The parotid, submandibular, and thyroid glands are normal. The muscles of the neck are normal. Vessels of the neck demonstrate normal course, caliber, and enhancement. The visualized aerodigestive tract is normal. Torus palatinus per The visualized posterior fossa and brain is unremarkable. The visualized orbits and paranasal sinuses are normal. Mild multilevel degenerative disc desiccation. Multilevel spinal canal stenosis secondary to disc protrusions and marginal osteophytes. Multilevel neural foraminal narrowing secondary to uncovertebral and facet arthrosis. The visualized lung apices are clear. IMPRESSION: No neck mass or lymphadenopathy. Electronically signed by: Malia Ravi MD (12/21/2020 9:42 AM) [id number] DICTATED and SIGNED BY: MALIA RAVI MD DATE: 12/21/20 [id number] 0 Course & Med Decision Making: Course & Med Decision Making Pertinent Labs and Imaging studies reviewed. (See chart for details) COVID-19 CRITERIA: The patient was evaluated during the global COVID-19 pandemic, and that diagnosis was suspected/considered upon their initial presentation. Their evaluation, treatment and testing was consistent with cu rrent guidelines for patients who present with complaints or symptoms that may be related to COVID-19. History concerning for upper respiratory infection/viral process, cannot exclude Covid, test pending. Labs show mild hypokalemia. Will discharge home with strict ED return precautions. Encouraged urgent outpatient follow-up with PMD within the next few days to have her thyroid checked. Life-threatening processes were considered but are low suspicion at this time, given history, physical exam and ED workup. Pt was educated on all prescription medications and adverse effects. All patient's questions were answered and pt was stable at time of discharge. Life/limb-threatening differential includes but is not limited to, aortic dissection/aneurysm, cauda equina syndrome, transverse myelitis, spinal cord/epidural compression syndromes, discitis, spinal stenosis, epidural abscess or hematoma, osteomyelitis, disc herniation, surgical abdomen, stable or unstable fracture, renal/ureteral colic, sepsis, meningitis, musculoskeletal injury, traumatic injury, intraabdominal/retroperitoneal or pelvic bleeding. I spoken with the patient and her caregivers. I explained the patient's condition, diagnoses and treatment plan based on the information available to me at this time. I have answered the patient and her caregiver's questions and addressed any concerns. The patient and her caregivers have a good understanding of patient's diagnosis, condition and treatment plan as can be expected at this point. Vital signs have been stable. Patient's condition is stable and appropriate for discharge from the emergency department. Patient will pursue further outpatient evaluation with primary care physician or other designated or consulting physician as outlined in the discharge instructions. The patient and/or caregivers are agreeable to this plan of care and follow-up instructions have been explained in detail. The patient and/or caregivers have received these instructions in written form and have expressed an understanding of the discharge instructions. The patient and/or caregivers are aware that any significant change of condition or worsening of symptoms should prompt immediate return to this or the closest emergency department or call to 911. Ayaan Disclaimer: Dragpamela Disclaimer: This electronic medical record was generated, in whole or in part, using a voice recognition dictation system. Departure Departure Impression: Primary Impression: Neck pain Additional Impressions: Person under investigation for COVID-19 Upper respiratory infection Disposition: 01 DC HOME SELF CARE/HOMELESS Condition: STABLE Referrals: DIONNE LARSEN MD (PCP) within 2-3 days for evaluation, for thyroid testing Patient Instructions: Sore Throat, Upper Respiratory Infection, Adult Additional Instructions: Return to ED immediately if your oxygen level drops below 90% (purchase a pulse oximetry at a medical supply store), difficulties breathing including rapid breathing or increased work of breathing (skin sucking under ribs), chest pain or stroke-like symptoms (facial droop, speech changes, arm/leg weakness). You have been tested for COVID-19. It is an infection caused by a new type of coronavirus. COVID-19 will cause cold-like or mild flu symptoms in most. It can cause more severe symptoms like problems breathing in some. There is no treatment for COVID-19. The body will clear the infection over time. Self-care will help to ease discomfort. Steps to Take: Self-Care Rest as needed. Healthy habits may help you feel better. Steps include: Choose healthy foods including fruits and vegetables. Drink water throughout the day. Get plenty of sleep each night. If you smoke, try to quit. It may ease breathing. Avoid alcohol. Keep Others Healthy The virus can spread to others. Droplets are released every time you sneeze or cough. The droplets can get into the mouth, nose, or eyes of people near you and lead to infection. To lower the chances of spreading COVID-19 to others: Stay at home until your doctor has said it is safe to leave. If you tested pos itive this will mean staying isolated until both of the following are true: At least 7 days have passed since the start of illness. You are free of fever for at least 72 hours without the use of medicine. During this time: - Avoid public areas, events, or transportation. Do not return to work or school until your doctor has said it is safe to do so. - Call ahead if you need to go to a medical center. Let them know you may have COVID-19. It will help them guide you where to go. They may also ask you to wear a facemask when you come to the office. - If you call for emergency medical services, let them know you may have COVID- 19. While at home: - Try to avoid close contact with others. Stay about 6 feet away. - If possible, spend most of your time in a separate room from others. - Use a face mask if you will be in close contact with others such as sharing a room or vehicle. - Have someone wipe down common surfaces in the home. Use household operator command support systems every day on areas like doorknobs, counters, or sinks. - Cough or sneeze into a tissue. Throw the tissue away right after use. If a tissue is not available, cough or sneeze into your elbow. - Wash your hands often. Wash them after sneezing or coughing. Use soap and water and wash for at least 20 seconds. Alcohol based hand assembly cleaner can be used if soap and water is not available. - Do not prepare food for others. Avoid sharing personal items like forks, spoons, or toothbrushes. - Avoid close contact with pets while you are sick. There is no evidence of the virus passing to pets. This is a safety step until more is known about this virus. Isolation can be frustrating. Social interaction can help. Keep in touch with friends and family through phone and tech options. You can still interact with others in your home, just keep a safe distance of about 6 feet. Follow-up: Your doctors office will check in with you to see if there are any changes in your health. You may be asked to keep track of symptoms to share with them. They will also let you know when you are clear to be in public again. Problems to Look Out For: Contact your doctor if your recovery is not going as you expect. Get emergency care if you have problems such as: - Trouble breathing - Nonstop chest pain or pressure - Changes in awareness, confusion, or problems waking - Lips or face have bluish color - Worsening of symptoms If you think you have an emergency, call for emergency medical services right away. As taken from [facility],DAMIAN Galvan DO Dec 21, 2020 07:58
[2020-12-21] MEDS ORDERED: IV NORMAL SALINE 1000ML BAG 1,000 ML IV ONE (08:00)
[2020-12-21] MEDS ORDERED: KETOROLAC 15 MG/ML VIAL. IVP ONE (08:00)
[2020-12-21 08:29] LABS: BASO # 0.1 x10^3/uL (0.0-0.2); BASO % 1 % (0-3); EOS # 0.2 x10^3/uL (0.0-0.7); EOS % 4 % (0-3); HEMATOCRIT 36.2 % (36.0-47.0); HEMOGLOBIN 11.8 g/dL (12.0-15.5); LYMPH # 3.1 x10^3/uL (1.0-4.8); LYMPH % 43 % (24-48); MEAN CORPUSCULAR HEMOGLOBIN 26 pg (25-35); MEAN CORPUSCULAR HGB CONC 33 g/dL (31-37); MEAN CORPUSCULAR VOLUME 78 fL (79-100); MONO # 0.5 x10^3/uL (0.0-1.1); MONO % 6 % (0-9); NEUT # 3.3 x10^3/uL (1.8-7.7); NEUT % 46 % (31-73); PLATELET COUNT 368 x10^3/uL (140-400); RED BLOOD COUNT 4.62 x10^6/uL (3.50-5.40); RED CELL DISTRIBUTION WIDTH 14.4 % (11.5-14.5); WHITE BLOOD COUNT 7.2 x10^3/uL (4.0-11.0)
[2020-12-21] MEDS ORDERED: CONTRAST GIVEN. MC PRN (08:30)
[2020-12-21] MEDS ORDERED: IOHEXOL 300 MG/ML 100ML VIAL. IV ONE (08:30)
[2020-12-21 08:47] LABS: MONONUCLEOSIS PATIENT NEGATIVE (NEGATIVE)
[2020-12-21 09:12] LABS: CALCIUM 8.6 mg/dL (8.5-10.1); GFR 66.9; POTASSIUM 3.2 mmol/L (3.5-5.1)
--- NOTE | 2020-12-21 09:44 | RAD ---
CT NECK SOFT TISSUE WITH IV CONTRAST DATE: 12/21/2020 9:18 AM INDICATION: anterior midline neck pain TECHNIQUE: Axial computed tomography of the neck with intravenous contrast according to the standard neck protocol. 70 cc of Omnipaque 300 was administered intravenously. One or more of the following do se reduction techniques were utilized: Automated exposure control (AEC), Adjustment of mA and/or kV according to patient size, Use of iterative reconstruction technique such as ASiR, CT scan done accor ding to ALARA and image gently/image wisely COMPARISON: None. FINDINGS: Scattered subcentimeter lymph nodes are seen in the neck. None are pathologically enlarged or abnorma lly enhancing. The parotid, submandibular, and thyroid glands are normal. The muscles of the neck are normal. Vessels of the neck demonstrate normal course, caliber, and enhancement. The visualized aero digestive tract is normal. Torus palatinus per The visualized posterior fossa and brain is unremarkable. The visualized orbits and paranasal sinuses are normal. Mild multilevel degenerative disc desiccation. Multilevel spinal canal stenosis secondary to disc pro trusions and marginal osteophytes. Multilevel neural foraminal narrowing secondary to uncovertebral a nd facet arthrosis. The visualized lung apices are clear. IMPRESSION: No neck mass or lymphadenopathy. Electronically signed by: Tay Ravi MD (12/21/2020 9:42 AM) [id number]
[2020-12-21] MEDS ORDERED: POTASSIUM BICARB 20 MEQ EFFERVESCENT TABLET. PEG ONE (12:30)
[2020-12-21 12:51] VITALS: BP 137/84
--- NOTE | 2020-12-22 17:28 | NUR ---
IP: Informed pt of negative COVID test. Pt verbalized understanding.
== END 2020-12-21 12:55 | disposition home or self-care (01) ==
LOC: ER 06:59
DX: J06.9 Acute upper respiratory infection, unspecified (principal); Z20.822 Contact with and (suspected) exposure to COVID-19; M54.2 Cervicalgia; F32.9 Major depressive disorder, single episode, unspecified; E11.9 Type 2 diabetes mellitus without complications; I10 Essential (primary) hypertension; Z90.710 Acquired absence of both cervix and uterus; Z90.89 Acquired absence of other organs; Z98.890 Other specified postprocedural states
CPT/HCPCS: 36415; 70491; 80048; 82550; 85025; 86308; 87070; 87880; 96361; 96374; 99285; C9803; J1885; J7030; Q9967; U0003

== ENCOUNTER → 2021-07-30 | Outpatient (CLI) | payer MEDICARE, MEDICAID ==
[~2021-07-30] MED LIST changes: -CLIN150C15 PO; +CLIN150C16 PO; -VALS1TAB18 PO; +VALS1TAB19 PO
--- NOTE | 2021-07-30 11:04 | RAD ---
EXAM: Bilateral digital screening mammogram with tomosynthesis. HISTORY: 66-year-old female presents for screening mammography. TECHNIQUE: Full-field digital craniocaudal and mediolateral oblique 2D and 3D tomosynthesis images of both breasts are obtained for evaluation. Computer aided detection was applied. COMPARISON: 07/17/2020 BREAST PARENCHYMAL DENSITY: Level A - Mostly fat. FINDINGS: There is asymmetry within the posterior inferior lateral aspect of the left breast in the m ediolateral oblique projection. There is no correlate in the craniocaudal projection. This favors sum mation artifact. There is no additional new suspicious mammographic finding. IMPRESSION: BI-RADS Category 0: Incomplete. Additional imaging needed. RECOMMENDATION: Further evaluation with a full field true lateral view and spot compression mediolate ral oblique view of the left breast to assess asymmetry within the posterior inferior lateral breast is recommended. Sonographic imaging can be performed if deemed indicated based on additional mamm[facility] findings. If your mammogram demonstrates that you have dense breast tissue, which could hide abnormalities, and if you have other risk factors for breast cancer that have been identified, you might benefit from s upplemental screening tests that may be suggested by your ordering physician. Dense breast tissue, i n and of itself, is a relatively common condition. This information is not provided to cause undue c oncern, but rather to raise your awareness and to promote discussion with your physician regarding th e presence of other risk factors, in addition to dense breast tissue. A report of your mammography re sults will be sent to you and your physician. You should contact your physician if you have any ques tions or concerns regarding this report. Mammography is a sensitive method for finding small breast cancers, but it does not detect them all a nd is not a substitute for careful clinical examination. A negative mammogram does not negate a clin ically suspicious finding and should not result in delay in biopsying a clinically suspicious abnorma lity. PQRS compliance statement - Patient information was entered into a reminder system with a target due date for the next mammogram. "Our facility is accredited by the [employer] Mammography Program." Electronically signed by: Geraldine Muñoz MD (07/30/2021 11:02 AM) [id number]
== END ==
LOC: MAMMO 09:32
PROVIDERS: ATTEND Family Medicine
DX: Z12.31 Encounter for screening mammogram for malignant neoplasm of breast (principal)
CPT/HCPCS: 77063; 77067

== ENCOUNTER → 2021-08-13 | Outpatient (CLI) | payer MEDICARE, MEDICAID ==
--- NOTE | 2021-08-13 10:34 | RAD ---
PROCEDURE: MG DIAGNOSTICUNILAT MAMMO HISTORY: The patient is 66 years old and is seen for Reason: ABNORMAL MAMMOGRAM / Spl. Instructions: / History: . COMPARISON: July 30, 2021, July 17, 2020 and March 26, 2019 TECHNIQUE: CC and MLO views of left breast were obtained. Images were processed by the [employer] computer-aided detection system. DENSITY: The breast tissue is predominantly fatty. FINDINGS: Asymmetry within the left posterior breast is less apparent on spot compression views and overall sim ilar appearance on spot compression views compared to 2020. IMPRESSION: Left posterior breast asymmetry is less apparent on spot compression views and similar compared to pr ior imaging. Finding may relate to prior mammoplasty. Recommend annual screening mammograms per [employer] guidelines. She will be due in one year. BI-RADS category 2 Benign Patient entered into a reminder system for annual screening mammogram. Electronically signed by: Emile Fischer DO (08/13/2021 10:32 AM) [id number]
== END ==
LOC: MAMMO 09:20
PROVIDERS: ATTEND Family Medicine
DX: R92.8 Other abnormal and inconclusive findings on diagnostic imaging of breast (principal)
CPT/HCPCS: 77065

== ENCOUNTER → 2021-09-07 | Day surgery (SDC) | payer MEDICARE, MEDICAID ==
[~2021-09-07] MED LIST changes: -CITA40TA5 PO; +CITA40TA6 PO; +CYCL10TA19 PO; -CYCL10TA2 PO; +IV RINGERS,LACTATED 1000ML 1,000 ML IV SCH; +SODIUM PHOSPHATES 19/7GM 133 ML ENEMA. ONE
--- NOTE | 2021-09-07 13:39 | NUR ---
PT HERE FOR COLONOSCOPY. PT STATED HER STOOL WAS NOT CLEAR. FLEETS ENEMA GIVEN PER DR GONZALEZ. STOOL NOTED TO BE VERY BROWN WITH SLUDGE. DR GONZALEZ NOTIFIED AND PROCEDURE CX'D FOR NOW. DR GONZALEZ TO RESCHEDULE PT WITH [facility] [place] IN AM SO PT CAN DO ONE MORE DAY OF BOWEL PREP. DR GONZALEZ WITH PT AND EXPLAINED TO HER TO REDO THE SAME COLON PREP SHE DID FOR TODAY AND TO REMAIN NPO. PT VOICED UNDERSTANDING. PT RESCHEDULED AT 0730 ON 09/08/2021 AT [facility]. PT VOICED UNDERSTANDING. LEFT TO HOME FROM [facility] AMB.
== END | disposition home or self-care (01) ==
LOC: ENDOS 13:10
PROVIDERS: ATTEND Internal Medicine Gastroenterology
DX: K62.5 Hemorrhage of anus and rectum (principal); Z53.8 Procedure and treatment not carried out for other reasons; I10 Essential (primary) hypertension; E78.00 Pure hypercholesterolemia, unspecified; K21.9 Gastro-esophageal reflux disease without esophagitis; M19.90 Unspecified osteoarthritis, unspecified site; E11.9 Type 2 diabetes mellitus without complications; F32.9 Major depressive disorder, single episode, unspecified; Z90.710 Acquired absence of both cervix and uterus; Z98.890 Other specified postprocedural states; Z79.899 Other long term (current) drug therapy; Z79.84 Long term (current) use of oral hypoglycemic drugs; Z88.8 Allergy status to other drugs, medicaments and biological substances

== ENCOUNTER 2021-10-05 03:26 | Emergency (ER) | payer MEDICARE, MEDICAID ==
[~2021-10-05] VITALS: Ht 165.1 cm; Wt 86.4 kg
[~2021-10-05 03:26] MED LIST changes: -IV RINGERS,LACTATED 1000ML 1,000 ML IV SCH; -SODIUM PHOSPHATES 19/7GM 133 ML ENEMA. ONE
[2021-10-05 04:06] VITALS: BP 132/86
== END 2021-10-05 04:47 | disposition left against medical advice (07) ==
LOC: ER 03:26
DX: R10.9 Unspecified abdominal pain (principal); R05.9 Cough, unspecified; R06.7 Sneezing; Z53.21 Procedure and treatment not carried out due to patient leaving prior to being seen by health care provider

== ENCOUNTER → 2021-12-28 | Day surgery (SDC) | payer MEDICARE, MEDICAID ==
[~2021-12-28] VITALS: Ht 165.1 cm; Wt 74.0 kg
[~2021-12-28] MED LIST changes: +IV RINGERS,LACTATED 1000ML 1,000 ML IV SCH; +PROPOFOL 10 MG/ML (20ML) VIAL. IV ONE
[2021-12-28 13:06] VITALS: BP 146/84
--- NOTE | 2021-12-28 13:22 | PDOC1 ---
History and Physical Date of Admission Date of Admission DATE: 12/28/21 TIME: 13:15 Identification/Chief Complaint Chief Complaint Colon cancer screening. Source Source: Chart review, Patient History of Present Illness History of Present Illness 66 y/o female referred for CRC screening. Had historically normal exam 10-11 years ago. Maybe occasional constipation. No diarrhea or overt bleeding. Wt/appetite OK. No N, V. GIFH negative. H/o GERD on daily esomeprazole. No dysphagia, PUD, GB, liver or pancreatic history. No tobacco or alcohol use. Past Medical History Cardiovascular: HTN Pulmonary: Asthma Psych: Depression Musculoskeletal: Osteoarthritis Endocrine: Diabetes Past Surgical History Past Surgical History: Cataract Removal, Hysterectomy, Other (right shoulder arthroscopy) Family History Family History: Diabetes, Hypertension, Stroke Social History Smoke: No ALCOHOL: none Drugs: None Current Medications Current Medications Current Medications Ringer's Solution 1,000 ml @ 50 mls/hr Q20H IV ; Start 12/28/21 at 07:00; Stop 12/28/21 at 18:59 Active Scripts Active Mobic (Meloxicam) 7.5 Mg Tablet 1 Tab PO DAILY Losartan-Hctz 100-25 Mg Tab (Losartan/Hydrochlorothiazide) 1 Each Tablet 1 Tab PO DAILY Reported Zofran (Ondansetron Hcl) 8 Mg Tablet 1 Tab SL Q8HRS Percocet 5-325 mg Tablet (Oxycodone HCl/Acetaminophen) 1 Each Tablet 1 Tab PO Q6HRS PRN MDD 2 Tablet(s) 5 Days Colace (Docusate Sodium) 100 Mg Capsule 1 Cap PO BID 30 Days Cyclobenzaprine Hcl 10 Mg Tablet 10 Mg PO PRN PRN Atorvastatin Calcium 10 Mg Tablet 10 Mg PO HS Metformin Hcl Er (Metformin Hcl) 1,000 Mg Tab.er.24 500 Mg PO DAILYWBKFT Ventolin Hfa Inhaler (Albuterol Sulfate) 18 Gm Hfa.aer.ad 2 Puff IH PRN Q4-6HRS Nexium 24Hr (Esomeprazole Magnesium) 20 Mg Capsule.dr 40 Mg PO NEXT DOSE: 02/10/16 AM Loratadine 10 Mg Tablet 1 Tab PO DAILY LAST DOSE: 02/09/16 AM NEXT DOSE: 02/10/16 AM Nifedical Xl (Nifedipine) 30 Mg Tab.er.24 60 Mg PO DAILY LAST DOSE: 02/09/16 AM NEXT DOSE: 02/10/16 AM Citalopram Hbr (Citalopram Hydrobromide) 40 Mg Tablet 20 Mg PO DAILY Allergies Allergies: Coded Allergies: verapamil (Unverified Allergy, Intermediate, itching, 12/28/21) ROS Review of System Otherwise negative. Physical Exam General: Alert, Oriented X3, Cooperative, No acute distress Lungs: Clear to auscultation, Normal air movement Heart: S1S2, RRR, no gallops, no murmurs Abdomen: Normal bowel sounds, Soft, No tenderness, No hepatosplenomegaly, No masses Rectal Exam: deferred (to time of procedure) Extremities: No cyanosis, No edema Skin: No significant lesion Neuro: Normal speech, Strength at 5/5 X4 ext, Normal tone, Sensation intact, Cranial nerves 3-12 NL, Reflexes 2+ Psych/Mental Status: Mental status NL, Mood NL Vitals Vitals Vital Signs Date Time Temp Pulse Resp B/P (MAP) Pulse Ox O2 Delivery O2 Flow Rate FiO2 12/28/21 13:06 98.0 67 20 100 98.0 VTE Prophylaxis Ordered VTE Prophylaxis Devices: No VTE Pharmacological Prophylaxi: No Assessment/Plan Assessment/Plan IMP: Screening, average risk historically. PLAN: colonoscopy. ANGELO GONZALEZ MD Dec 28, 2021 13:22
--- NOTE | 2021-12-28 13:47 | PDOC4 ---
PROCEDURE Procedure Colonoscopy Ind: CRC screening. Meds: per anesthesia. Findings: KWAN normal. --'Scope advanced to cecum. Prep adequate. Mucosa normal. No polyps, tics, etc. No lesions on retroflex. Angus. well. IMP: Normal colonoscopy. REC: Resume meds, diet. Consider repeat colonoscopy 10 years. F/u wt us prn. Given long h/o reflux, could consider EGD to screen for [facility] if not done. ANGELO GONZALEZ MD Dec 28, 2021 13:47
[2021-12-28 14:07] VITALS: BP 136/87
== END | disposition home or self-care (01) ==
LOC: ENDOS 12:37
PROVIDERS: ATTEND Internal Medicine Gastroenterology
DX: Z12.11 Encounter for screening for malignant neoplasm of colon (principal); K63.89 Other specified diseases of intestine; K21.9 Gastro-esophageal reflux disease without esophagitis; I10 Essential (primary) hypertension; J45.909 Unspecified asthma, uncomplicated; E11.9 Type 2 diabetes mellitus without complications; F32.9 Major depressive disorder, single episode, unspecified; M19.90 Unspecified osteoarthritis, unspecified site; E78.00 Pure hypercholesterolemia, unspecified; Z90.710 Acquired absence of both cervix and uterus; Z98.890 Other specified postprocedural states; Z79.84 Long term (current) use of oral hypoglycemic drugs; Z82.49 Family history of ischemic heart disease and other diseases of the circulatory system; Z83.3 Family history of diabetes mellitus; Z88.8 Allergy status to other drugs, medicaments and biological substances
CPT/HCPCS: G0121; J2704; 45378